=== PATIENT | female | born 1935 | race Caucasian/White ===

== ENCOUNTER → 2016-08-25 | Outpatient (CLI) | payer MEDICARE ==
--- NOTE | 2016-08-29 08:43 | MM ---
Reason for exam: screening (asymptomatic). Last mammogram was performed 1 year and 5 months ago. History: Patient is postmenopausal. Family history of breast cancer in maternal aunt at age 60 and breast cancer in maternal aunt at age 50. Reductions of both breasts, 2000. Reductions of both breasts, 195. 2 excisional biopsies of the left breast. 2 excisional biopsies of the right breast. Took hormonal contraceptives for 5 years beginning at age 26. Physical Findings: A clinical breast exam by your physician is recommended on an annual basis and results should be correlated with mammographic findings. MG Screening Mammo w CAD Bilateral CC and MLO view(s) were taken. Prior study comparison: March 30, 2015, bilateral MG 3d screening mammo w/cad. No significant changes when compared with prior studies. ASSESSMENT: Benign, BI-RAD 2 RECOMMENDATION: Routine screening mammogram of both breasts in 1 year.
== END | disposition home or self-care (01) ==
LOC: RADMAMWWP 10:02
PROVIDERS: ATTEND Family Medicine
DX: Z12.31 Encounter for screening mammogram for malignant neoplasm of breast (principal)

== ENCOUNTER → 2017-12-26 | Outpatient (CLI) | payer MEDICARE ==
--- NOTE | 2017-12-28 11:25 | MM ---
Reason for exam: screening (asymptomatic). Last mammogram was performed 1 year and 4 months ago. History: Patient is postmenopausal. Family history of breast cancer in maternal aunt at age 60 and breast cancer in maternal aunt at age 50. Reductions of both breasts, 2000. Reductions of both breasts, 1957. 2 excisional biopsies of the left breast. 2 excisional biopsies of the right breast. Took hormonal contraceptives for 5 years beginning at age 26. Physical Findings: A clinical breast exam by your physician is recommended on an annual basis and results should be correlated with mammographic findings. MG Screening Mammo w CAD Bilateral CC and MLO view(s) were taken. Prior study comparison: August 25, 2016, bilateral MG screening mammo w CAD. March 30, 2015, bilateral MG 3d screening mammo w/cad. There are scattered fibroglandular densities. Finding: There are typically benign, indeterminate calcifications in the posterior, retroareolar position of the right breast on MLO view only. New finding since August 25, 2016 and March 30, 2015. ASSESSMENT: Incomplete: need additional imaging evaluation, BI-RAD 0 RECOMMENDATION: Special view mammogram of the left breast. [facility] will attempt to contact patient to return for supplemental views.
== END ==
LOC: RADMAMWWP 13:03
PROVIDERS: ATTEND Family Medicine
DX: Z12.31 Encounter for screening mammogram for malignant neoplasm of breast (principal)
CPT/HCPCS: 77067

== ENCOUNTER → 2018-01-10 | Outpatient (CLI) | payer MEDICARE ==
--- NOTE | 2018-01-10 10:28 | MM ---
Reason for exam: additional evaluation requested from abnormal screening. Last mammogram was performed less than 1 month ago. History: Patient is postmenopausal. Family history of breast cancer in maternal aunt at age 60 and breast cancer in maternal aunt at age 50. Reductions of both breasts, 2000. Reductions of both breasts, 1957. 2 excisional biopsies of the left breast. 2 excisional biopsies of the right breast. Took hormonal contraceptives for 5 years beginning at age 26. Physical Findings: Nurse did not find any significant physical abnormalities on exam. MG 3D Work Up W/Cad RT Spot compression CC, spot compression MLO, and LM view(s) were taken of the right breast. Prior study comparison: December 26, 2017, bilateral MG screening mammo w CAD. August 25, 2016, bilateral MG screening mammo w CAD. Posterior lower outer quadrant central grouped calcifications slightly increased from 2017. These are round and punctate. 6 month follow up recommended. These results were verbally communicated with the patient and result sheet given to the patient on 01/10/18. ASSESSMENT: Probably benign, BI-RAD 3 RECOMMENDATION: Follow-up diagnostic mammogram of the right breast in 6 months.
== END | disposition home or self-care (01) ==
LOC: RADMAMWWP 09:13
PROVIDERS: ATTEND Family Medicine
DX: R92.8 Other abnormal and inconclusive findings on diagnostic imaging of breast (principal)
CPT/HCPCS: 77065; G0279; 77061

== ENCOUNTER → 2018-07-13 | Outpatient (CLI) | payer MEDICARE ==
--- NOTE | 2018-07-13 13:45 | MM ---
Reason for exam: follow-up at short interval from prior study. Last mammogram was performed 6 months ago. History: Patient is postmenopausal. Family history of breast cancer in maternal aunt at age 60 and breast cancer in maternal aunt at age 50. Reductions of both breasts, 2000. Reductions of both breasts, 1957. 2 excisional biopsies of the left breast. 2 excisional biopsies of the right breast. Took hormonal contraceptives for 5 years beginning at age 26. Physical Findings: Nurse did not find any significant physical abnormalities on exam. MG Diagnostic Mammo RT w CAD XCCL and MLO view(s) were taken of the right breast. Prior study comparison: January 10, 2018, right breast MG 3d work up w/cad RT. December 26, 2017, bilateral MG screening mammo w CAD. There are scattered fibroglandular densities. Stable benign calcifications in the right breast. There is chronic nodularity in the right breast. These results were verbally communicated with the patient and result sheet given to the patient on 07/13/18. ASSESSMENT: Benign, BI-RAD 2 RECOMMENDATION: Return to routine screening mammogram schedule for both breasts. Back on schedule.
== END | disposition home or self-care (01) ==
LOC: RADMAMWWP 12:43
PROVIDERS: ATTEND Family Medicine
DX: R92.8 Other abnormal and inconclusive findings on diagnostic imaging of breast (principal)
CPT/HCPCS: 77065

== ENCOUNTER → 2020-09-21 | Outpatient (CLI) | payer MEDICARE ==
[2020-09-21 11:41] LABS: Partial Thromboplastin Time 22.4 sec (22.0-30.0)
[2020-09-21 14:41] LABS: Appearance,Urine Clear (Clear); Bilirubin,Urine Negative (Negative); Blood,Urine Negative (Negative); Color,Urine Light Yellow; Glucose,Urine (UA) Negative (Negative); Ketones,Urine Negative (Negative); Leukocyte Esterase,Urine Negative (Negative); Nitrite,Urine Negative (Negative); Protein,Urine Negative (Negative); Specific Gravity,Urine 1.016 (1.001-1.035); Urobilinogen,Urine <2.0 mg/dL (<2.0)
[2020-09-21 14:47] LABS: HCT 37.5 % (37.2-46.3); HGB 12.2 g/dL (12.0-15.0); MCH 28.6 pg (27.0-32.0); MCHC 32.5 g/dL (32.0-37.0); MCV 87.8 fL (80.0-97.0); Mean Platelet Volume 10.6 fL (9.5-12.2); Platelet Count 197 X 10*3/uL (140-440); RBC 4.27 X 10*6/uL (4.10-5.20); RDW 12.6 % (11.5-14.5); WBC 7.11 X 10*3/uL (4.50-10.00)
[2020-09-21 16:23] LABS: African American GFR (CKD) 78.5 (60.0-200.0); Albumin 4.3 g/dL (3.80-4.90); Albumin/Globulin Ratio 2.05 (1.60-3.17); Anion Gap 9.4 mmol/L (4.00-12.00); BUN/Creat Ratio 23.75 Ratio (12.00-20.00); Calcium 9.6 mg/dL (8.7-10.3); Carbon Dioxide 24.6 mmol/L (21.6-31.8); Globulin 2.1 g/dL (1.6-3.3); Non-African American GFR(CKD) 67.7 (60.0-200.0); Potassium 4.4 mmol/L (3.5-5.5); Total Bilirubin 1.1 mg/dL (0.3-1.2); Total Protein 6.4 g/dL (6.2-8.2)
== END | disposition home or self-care (01) ==
LOC: LABWHC1 09:45
PROVIDERS: ATTEND Orthopaedic Surgery Sports Medicine
DX: Z01.818 Encounter for other preprocedural examination (principal); I45.4 Nonspecific intraventricular block; M17.12 Unilateral primary osteoarthritis, left knee; R94.31 Abnormal electrocardiogram [ECG] [EKG]
CPT/HCPCS: 36415; 80053; 81003; 85027; 85610; 85730; 87070; 93005

== ENCOUNTER 2020-10-15 05:31 | Day surgery (SDC) | payer MEDICARE ==
[2020-10-01 12:14] VITALS: BMI 32.9
[~2020-10-15 05:31] MED LIST: ACETAMINOPHEN TAB 500 MG TAB PO PRN; GABAPENTIN 300 MG CAP PO PRN; MELOXICAM 7.5 MG TAB PO PRN; ONDANSETRON 4 MG/2 ML VIAL IVP PRN; ROPIVACAINE/EPI/CLONIDINE/KET 50 ML SYRINGE MISCELLANE PRN; TRANEXAMIC ACID 1,000 MG in SODIUM CHLORIDE 0.9% 100 ML IVPB PRN
[2020-10-15] MEDS ORDERED: DEXAMETHASONE SOD PHOSPHATE 4 MG/ML 1 ML VIAL IV ONE (05:47)
[2020-10-15] MEDS ORDERED: ONDANSETRON 4 MG/2 ML VIAL IVP ONE (05:47)
[2020-10-15] MEDS ORDERED: HYDROmorphone 0.5 MG/0.5 ML SYRINGE IVP PRN ×3 (05:47→09:27)
[2020-10-15] MEDS: LACTATED RINGERS 1,000 ML IV SCH ×3 (06:29→20:11)
[2020-10-15] MEDS ORDERED: LIDOCAINE 1% (10MG/ML) FOR IV START INTRADERMA ONE (06:30)
[2020-10-15 06:33] LABS: Glucose,Whole Blood 136 mg/dL (75-99)
[2020-10-15] MEDS ORDERED: MIDAZOLAM 2 MG/2 ML VIAL IV ONE (06:42)
[2020-10-15] MEDS ORDERED: fentaNYL (PF) 50 MCG/ML 2 ML AMP ONE (07:04)
[2020-10-15] MEDS ORDERED: ROPIVACAINE 5 MG/ML 30 ML VIAL ONE (07:04)
[2020-10-15] MEDS ORDERED: MIDAZOLAM 2 MG/2 ML VIAL ONE (07:04)
[2020-10-15] MEDS ORDERED: SODIUM CHLORIDE 0.9% 100 ML BAG ONE (07:04)
[2020-10-15] MEDS ORDERED: ePHEDrine SULFATE/0.9% NACL/PF 50 MG/5 ML SYRINGE IV ONE (07:04)
[2020-10-15] MEDS ORDERED: PROPOFOL 10 MG/ML 20 ML VIAL IV ONE (07:04)
[2020-10-15] MEDS ORDERED: TRANEXAMIC ACID 1,000 MG/10 ML VIAL ONE (07:04)
[2020-10-15] MEDS ORDERED: ceFAZolin 3,000 MG in SODIUM CHLORIDE 0.9% IRRIGATIO 3,000 ML IRRIGATION ONE (07:41)
[2020-10-15] MEDS ORDERED: LACTATED RINGERS 1,000 ML IV ONE (09:03)
--- NOTE | 2020-10-15 09:21 | P.ANPRN ---
Procedure Note - Anesthesia - Nerve Block Performed Left Adductor Canal Infusion Time Out Performed: Yes (642) Date of Procedure: 10/15/20 Procedure Start Time: 06:43 Procedure Stop Time: 06:48 Location of Patient: PreOp Indication: Acute Post-Operative Pain, Requested by Surgeon Specifically requested for management of pain by DrLiliam: Arron Kerr Sedation Type: Sedate with meaningful contact maintained Preparation: Sterile Prep Position: Supine Catheter Depth at Skin (cm): 8 Catheter: Indwelling Needle Types: Pajunk Needle Gauge: 21 Ultrasound used to visualize needle placement: Yes Ultrasound used to observe medication spread: Yes Injectate: 0.5% Ropivacaine (see comment for volume) (15cc) Blood Aspirated: No Pain Paresthesia on Injection Noted: No Resistance on Injection: Normal Image Stored and Saved: Yes Events: Uneventful and Well Tolerated Left iPack Single Time Out Performed: Yes (642) Date of Procedure: 10/15/20 Procedure Start Time: 06:49 Procedure Stop Time: 06:54 Location of Patient: PreOp Indication: Acute Post-Operative Pain, Requested by Surgeon Specifically requested for management of pain by Dr.: Arron Kerr Sedation Type: Sedate with meaningful contact maintained Preparation: Sterile Prep Position: Supine Catheter: None Needle Types: Pajunk Needle Gauge: 21 Ultrasound used to visualize needle placement: Yes Ultrasound used to observe medication spread: Yes Injectate: 0.5% Ropivacaine (see comment for volume) (15cc) Blood Aspirated: No Pain Paresthesia on Injection Noted: No Resistance on Injection: Normal Image Stored and Saved: Yes Events: Uneventful and Well Tolerated
[2020-10-15] MEDS ORDERED: ONDANSETRON 4 MG/2 ML VIAL IVP PRN (09:27)
[2020-10-15] MEDS ORDERED: bisacodyL 10 MG SUPP RECTAL PRN (09:27)
[2020-10-15] MEDS ORDERED: HYDROmorphone 0.2 MG/1 ML SYRINGE IVP PRN (09:27)
[2020-10-15] MEDS ORDERED: MAGNESIUM HYDROXIDE 2,400 MG/10 ML CUP PO PRN (09:27)
[2020-10-15] MEDS ORDERED: NALOXONE 0.4 MG/ML 1 ML VIAL IV PRN (09:27)
[2020-10-15] MEDS ORDERED: diazePAM 5 MG TAB PO PRN (09:27)
[2020-10-15] MEDS ORDERED: HYDROcodone/APAP 5-325MG 1 EACH TAB PO PRN (09:27)
[2020-10-15] MEDS ORDERED: traMADol 50 MG TAB PO PRN (09:27)
[2020-10-15] MEDS ORDERED: ACETAMINOPHEN TAB 325 MG TAB PO PRN (09:27)
[2020-10-15] MEDS ORDERED: TEMAZEPAM 15 MG CAP PO PRN (09:27)
[2020-10-15] MEDS ORDERED: NA PHOS,M-B/NA PHOS,DI-BA 133 ML ENEMA RECTAL PRN (09:27)
[2020-10-15] MEDS ORDERED: ROPIVACAINE 0.2%-NS ON-Q PUMP 1,090 MG, EMPTY PAIN BALL 1 EACH MISCELLANE PRN (09:44)
--- NOTE | 2020-10-15 09:52 | XR ---
EXAMINATION TYPE: XR knee limited LT DATE OF EXAM: 10/15/2020 CLINICAL HISTORY: Left knee pain and arthritis status post total knee replacement. TECHNIQUE: Portable AP and crosstable lateral views of the left knee are obtained immediately postop eratively. COMPARISON: None FINDINGS: Metallic hardware from total left knee arthroplasty is seen and appears satisfactory in al ignment and position. There is evidence of recent surgery with diffuse subcutaneous gas and soft tis ronaldo swelling noted. IMPRESSION: METALLIC HARDWARE FROM TOTAL LEFT KNEE ARTHROPLASTY IS SATISFACTORY IN ALIGNMENT.
--- NOTE | 2020-10-15 10:37 | OP ---
OPERATIVE REPORT DATE OF PROCEDURE: 10/15/2020. SURGEON: Arron Kerr MD. PROPERTY DEVELOPER: Ron LUGO. PREOP DIAGNOSIS: Left knee osteoarthrosis. POSTOPERATIVE DIAGNOSIS: Left knee osteoarthrosis. OPERATION: Left total knee arthroplasty. ANESTHESIA: Spinal with sedation. ESTIMATED BLOOD LOSS: 100 mL. TOURNIQUET: Time was 60 minutes at 250 mmHg. COMPLICATIONS: None apparent. DRAINS: None. DISPOSITION: Postanesthesia care unit. INDICATIONS: Alicia is an 85-year-old female with longstanding history of left knee pain. History and physical examination are consistent with advanced left knee osteoarthrosis. She has been through significant nonoperative management up to this point. Further treatment options were discussed and she decided to go for the left total knee arthroplasty. Risks of procedure were discussed in detail. These risks included, but were not limited to risk of infection, nerve damage, bleeding, pain, and a small risk of deep vein thrombosis which could lead to fatal pulmonary emboli. There is also risk of loosening of the implant which could require revision operation. The patient understands these risks. All of her questions were answered to her satisfaction. Appropriate informed consent was obtained. DESCRIPTION OF THE PROCEDURE: The patient identified in preoperative holding area. Surgical site was marked by both the patient and myself. She was given 2 grams of Ancef IV for prophylactic purposes. She was then transferred to the operative suite. She was placed supine on the operative table. Spinal anesthetic was then administered, dosed per the anesthesia without apparent complication. Examination under anesthesia was then performed. The patient was 2 - 3 degrees shy of full extension. She had 95 degrees of flexion. Medial collateral ligament, lateral collateral ligament and posterior cruciate ligaments were stable. Tourniquet was then placed high on the left upper thigh well-padded in preparation for surgery. The patient's left lower extremity was then prepped and draped in the usual sterile fashion. Standard surgical pause undertaken to ensure that we were operating on the correct site and that appropriate preoperative antibiotics were given. All staff were in agreement we proceeded. The outlines of the patella were marked surgical pen. A planned 12 cm vertical incision centered over the patella was marked with surgical pen. The limb was then exsanguinated with an Esmarch dressing. The knee was then flexed and tourniquet inflated to 250 mmHg. The total tourniquet time for the procedure was 60 minutes. Incision was then made with a 10 blade scalpel. Dissection carried down sharply overlying fascia. Great care was taken to minimize the skin flaps. The knee was then exposed using a standard medial parapatellar approach. A small cuff of quadriceps tendon was then left for suturing. She was in a bit of varus preoperatively. A standard medial release was then made. Superficial medial collateral ligament dissected off the bone around the posterior aspect of the proximal tibia. The medial meniscus was then excised as well. The lateral meniscus was also released anteriorly. The leg was then externally rotated. The patella was everted. The knee was flexed the retractors then placed to protect the collateral ligaments. I then proceeded to remove the infrapatellar fat pad. This was excised sharply tangentially with fibers of the patellar tendon. I then proceeded to remove the peripheral osteophytes. This was done with a rongeur. I then proceeded with the distal femoral resection. She did have near full extension. The planned 9 mm resection done. The femoral canal was then entered in midline of the femur approximately 10 mm anterior to the origin of posterior cruciate ligament. The mario was then advanced down the center of the femur and placed intramedullary. Based on the preoperative radiographs, the angle between the anatomic and mechanical axis of the femur was approximately 4-5 degrees with valgus angle, the distal femoral cutting guide was then set at 4 degrees for the left knee. The distal femoral cutting guide was then advanced over the intramedullary mario. This was seated firmly against the femur. I then as mentioned planned to take 9 mm off the distal femur. The cutting blocks then secured onto the femur with pins. The jig was removed. The distal femoral cut was made through the slot of the block. The pins were then removed. The distal femoral cutting block was removed. The accuracy of the distal femoral cuts was checked with 2 flat bars. I then proceed with his femoral sizing. Posterior referencing sizing guide was held firmly against the resected distal surface of the femur. The posterior condyles were resting on the posterior plane of the guide. The sizing guide was then placed on the anterior femur. The size was measured to a 8. I then assessed for femoral rotation. Plan was for 3 degrees of external rotation. Three degrees of external rotation was placed onto the jig. These holes were then marked. I then confirmed the rotation by 3 separate methods. This was done using epicondylar axis as well as [place] line and posterior referencing. It was deemed that the external rotation was proper. I went forward placing the femoral cutting block. This was placed over the previously placed pin holes. The Andres wing was then placed on the anterior slots to ensure that we would not notch the anterior femur with the anterior femoral cut. I then proceeded with the anterior femoral cut. This was flush with the anterior cortex of the femur. Posterior cuts were then made followed by the anterior chamfer cut, then the posterior chamfer cut. The cutting block was then removed. Throughout resection, the collateral ligaments were protected with retractors. I then placed a trial size 8 femur. It fit very nice medial-lateral and fit flush and was on the distal end of the femur. The drill holes were then made. I then proceeded with the tibial cut. I planned for a cruciate-retaining knee. The guide was placed and set for varus valgus and for slope. The height was set for approximate 2 mm resection from the medial tibial plateau which was the lower side. I was happy with the alignment and mario resection. The cutting block was then pinned to the proximal tibia. The alignment mario was removed. The proximal tibia was resected with a reciprocating saw. Again, this was done with retractors protecting the collateral ligaments as well as the posterior cruciate ligament. I then proceeded to evaluate the flexion and extension gaps. A 10 mm block was then placed. The flexion-extension gap was equal. I then proceeded with resection of posterior osteophytes. She had very minimal posterior osteophytes. This was done with a curved osteotome. This resected the posterior osteophytes and posterior capsule stripping done off the posterior aspect of the femur. The osteophytes were then removed. I then proceed to resection of the patella. The thickness of the patella was measured using the caliper. The thickness was 22 mm. The thickness of the anticipated patellar dome was taken into account. Resection was then performed and confirmed to be equal in 4 quadrants using a caliper. Approximately 14 mm of bone remained after resection. A 29 x 8 standard patellar trial was then placed. The holes were drilled. The trial was then placed. I then proceed to size the tibial plate. A size D tibial plate fit very nicely. I then placed the trial tibial tray and patellar button. A 10 mm trial tibial insert was also placed. The components fit very nicely. She had full extension and flexion. The extension and flexion gaps were equal and stable to varus and valgus stress. The patella tracked appropriately. The tibial tray rotation was marked with a Bovie. This was externally rotated properly. I then proceeded with the tibial preparation. I 1st drilled the femoral holes removed femoral component. The tibial tray was then set for proper external rotation as well as mediolateral placement onto the tibia. It was then pinned into place. I then proceeded with punching the keel. I then decided to proceed with cementing of all of our components. The knee was thoroughly irrigated with sterile saline solution via pulse lavage. The lateral geniculate artery was identified and cauterized. All blood was removed from the bone of the tibia femur and patella with pulse lavage. I then proceed with cementing. Two packs of antibiotic bone cement prepared on the back table by the manager technical support. I then proceed with cementing the tibia first. The cement was impacted in the keel as well as deeply seated to the bone. A second coat of cement was then placed. The tibia was then impacted into place. Excess cement was removed with [place]'s and jokers. I then proceeded with cementing the femoral component. The femoral components also cemented using standard technique. Excess cement was removed. A 10 mm trial insert was then placed into the knee. It was brought into full extension with the cement constant axial load placed until the cement had hardened. The patellar component then cemented. This was held firmly with a compressive device until the cement had dried. When the cement dried, the knee was taken out of extension. All excess cement was removed from around the prosthesis. I then trialed the knee with a 10 mm insert. The flexion and extension gaps were appropriate. I then trialed with a 12 mm insert. Flexion and extension gaps felt much better. The knee was stable with a 12 mm insert. It came into full extension. I decided to go forward with the 12 mm medial congruent cross-linked cruciate-retaining tibial insert. Polyethylene was then placed on the tibial tray and locked into place. The knee was again then reduced. The knee was again further irrigated with sterile saline solution with antibiotic added. The tourniquet was then deflated. Total tourniquet time for the procedure was 60 minutes at 250 mmHg. Final components were a Madhuri Persona size 8 cruciate Tivanium cruciate retaining. Femoral component, a size D tibial tray, a 12 mm medial congruent cruciate-retaining polyethylene insert, and a 29 x 8 mm patella. I then proceeded with closure. Again, the knee was thoroughly irrigated. The quadriceps tendon and medial retinaculum were reapproximated with #2 Ethibond suture. The extensor mechanism was then closed with a running #2 Quill suture. Subcutaneous tissues were closed with 2-0 Vicryl interrupted suture. The skin was closed with a running 3-0 Quill suture. Dermabond was applied to the incision. Sterile compressive dressings were applied. All sponge and needle counts were deemed correct prior to closure. The patient tolerated the procedure without apparent complication. She was transferred to the recovery room in stable condition. MMODL / IJN: [id number] /
[2020-10-15] MEDS: HYDROcodone/APAP 10-325MG 1 EACH TAB PO PRN ×3 (11:28→23:33)
[2020-10-15 11:51] LABS: Glucose,Whole Blood 138 mg/dL (75-99)
[2020-10-15 17:18] LABS: Glucose,Whole Blood 157 mg/dL (75-99)
[2020-10-15] MEDS: metFORMIN 500 MG TAB PO SCH (17:25)
[2020-10-15] MEDS ORDERED: ASPIRIN 81 MG PO SCH ×2 (17:30→21:00)
[2020-10-15] MEDS ORDERED: LOSARTAN 50 MG TAB PO SCH (17:30)
[2020-10-15] MEDS ORDERED: ATORVASTATIN 10 MG TAB PO SCH (17:30)
[2020-10-15 20:14] LABS: Glucose,Whole Blood 148 mg/dL (75-99)
[2020-10-15] MEDS ORDERED: SENNOSIDES-DOCUSATE SODIUM 1 EACH TAB PO SCH (21:00)
[2020-10-15] MEDS ORDERED: PATIENT'S OWN (Mirabegron [Myrbetriq] 50 MG Tab.Er.24h) PO SCH (21:00)
[2020-10-15] MEDS ORDERED: NON FORMULARY DRUG (Multivit With Calcium,Iron,Min [Women's Multivitamin] 1 EACH Tablet) PO SCH (21:00)
[2020-10-16 05:09] VITALS: BP 148/62; PULSE 82; RESP 17; TEMP 98
[2020-10-16] MEDS: HYDROcodone/APAP 10-325MG 1 EACH TAB PO PRN ×2 (05:25→11:25)
[2020-10-16] MEDS ORDERED: LEVOTHYROXINE 112 MCG TAB PO SCH (06:30)
[2020-10-16 06:34] LABS: Basophils % (A) 0 %; Eosinophils # (A) 0.1 k/uL (0-0.7); Eosinophils % (A) 1 %; HCT 32.9 % (34.0-46.0); HGB 11.2 gm/dL (11.4-16.0); Lymphocytes # (A) 1.9 k/uL (1.0-4.8); Lymphocytes % (A) 19 %; MCH 29.6 pg (25.0-35.0); MCHC 34.1 g/dL (31.0-37.0); Mean Platelet Volume 7.5; Monocytes # (A) 0.7 k/uL (0-1.0); Monocytes % (A) 8 %; Neutrophils # (A) 6.7 k/uL (1.3-7.7); Neutrophils % (A) 70 %; Platelet Count 175 k/uL (150-450); RBC 3.78 m/uL (3.80-5.40); RDW 12.9 % (11.5-15.5); WBC 9.6 k/uL (3.8-10.6)
[2020-10-16 07:19] LABS: Glucose,Whole Blood 130 mg/dL (75-99)
[2020-10-16] MEDS: LACTATED RINGERS 1,000 ML IV SCH ×2 (07:51)
[2020-10-16] MEDS: metFORMIN 500 MG TAB PO SCH (08:27)
[2020-10-16] MEDS ORDERED: CALCIUM CARBONATE 500 MG CHEWABLE PO SCH (09:00)
[2020-10-16] MEDS ORDERED: NON FORMULARY DRUG (Omega-3 Fatty Acids/Fish Oil [Fish Oil 1,000 Mg Softgel] 1 EACH Capsul PO SCH (09:00)
[2020-10-16] MEDS ORDERED: CHOLECALCIFEROL 25 MCG (1000 IU) TABLET PO SCH (09:00)
[2020-10-16] MEDS ORDERED: [UNRECOGNIZED DRUG - OTHER] PO SCH (09:00)
[2020-10-16] MEDS ORDERED: IBUPROFEN 400 MG TAB PO PRN (09:00)
[2020-10-16] MEDS ORDERED: NON FORMULARY DRUG (Vitamin B Complex [Vitamin B Complex] 1 EACH Capsule) PO SCH (09:00)
--- NOTE | 2020-10-16 10:08 | P.DS ---
Providers Expected date of discharge: 10/16/20 Attending physician: Arron Kerr Consults: 10/15/20 09:27 Consult Physician Routine Consulting Provider: Shari Gray Consult Reason/Comments: post op medical management Do you want consulting provider notified?: Yes Primary care physician: Haleigh Kelley - Discharge Diagnosis(es) (1) Osteoarthritis of left knee Patient was admitted to the OR on 10/15/20 to undergo a left total knee arthroplasty. She had failed conservative measures as an outpatient and desired to proceed with elective surgery after given informed consent. She underwent the above procedure which she tolerated well without complication. Postoperative hospital course has remained without complication. On day of discharge she is afebrile, vital signs stable, labs within acceptable ranges, tolerating by mouth meds and diet, voiding without difficulty, positive flatus, denies abdominal pain or calf pain, pain is controlled on oral pain medication and has no new complaints. Wound is benign, neurovascular status is intact, calf is soft and nontender, abdomen soft and nontender. Review of systems is negative for numbness, tingling, fever, chills, chest pain, shortness of breath, nausea, vomiting, dizziness, headaches, slurred speech or other. Current Visit: Yes Status: Acute Procedures: Left TKA Patient Condition at Discharge: Good Plan - Discharge Summary Discharge Rx Participant: No New Discharge Prescriptions: New Aspirin [Adult Low Dose Aspirin EC] 81 mg PO BID #60 tablet. Docusate [Colace] 100 mg PO BID #60 capsule HYDROcodone/APAP 7.5-325MG [[place] 7.5-325] 1 - 2 each PO Q6HR PRN #42 tab PRN Reason: Pain No Action Cranberry Conc/C/Bacill Coag [Cranberry Tablet] 1 each PO DAILY Calcium Carbonate [Tums] 1,000 mg PO DAILY Aspirin EC [Ecotrin] 81 mg PO W/SUPPER metFORMIN HCL [Glucophage] 500 mg PO BID-W/MEALS Simvastatin [Zocor] 20 mg PO W/SUPPER Levothyroxine Sodium [Levoxyl] 112 mcg PO DAILY Mirabegron [Myrbetriq] 50 mg PO HS Cholecalciferol [Vitamin D3 (25 Mcg = 1000 Iu)] 25 mcg PO DAILY Vitamin B Complex 1 each PO DAILY [place]-3 Fatty Acids/Fish Oil [Fish Oil 1,000 mg Softgel] 1 each PO DAILY Multivit with Calcium,Iron,Min [Women's Multivitamin] 1 each PO BID Losartan Potassium 100 mg PO W/SUPPER Ibuprofen 400 mg PO DIRECTED PRN PRN Reason: Pain Discharge Medication List Aspirin EC [Ecotrin] 81 mg PO W/SUPPER 11/04/13 [History] Calcium Carbonate [Tums] 1,000 mg PO DAILY 11/04/13 [History] Cranberry Conc/C/Bacill Coag [Cranberry Tablet] 1 each PO DAILY 11/04/13 [History] Levothyroxine Sodium [Levoxyl] 112 mcg PO DAILY 11/04/13 [History] Simvastatin [Zocor] 20 mg PO W/SUPPER 11/04/13 [History] metFORMIN HCL [Glucophage] 500 mg PO BID-W/MEALS 11/04/13 [History] Cholecalciferol [Vitamin D3 (25 Mcg = 1000 Iu)] 25 mcg PO DAILY 10/01/20 [History] Ibuprofen 400 mg PO DIRECTED PRN 10/01/20 [History] Losartan Potassium 100 mg PO W/SUPPER 10/01/20 [History] Mirabegron [Myrbetriq] 50 mg PO HS 10/01/20 [History] Multivit with Calcium,Iron,Min [Women's Multivitamin] 1 each PO BID 10/01/20 [History] [place]-3 Fatty Acids/Fish Oil [Fish Oil 1,000 mg Softgel] 1 each PO DAILY 10/01/20 [History] Vitamin B Complex 1 each PO DAILY 10/01/20 [History] Aspirin [Adult Low Dose Aspirin EC] 81 mg PO BID #60 tablet.dr 10/16/20 [Rx] Docusate [Colace] 100 mg PO BID #60 capsule 10/16/20 [Rx] HYDROcodone/APAP 7.5-325MG [[place] 7.5-325] 1 - 2 each PO Q6HR PRN #42 tab 10/16/20 [Rx] Follow up Appointment(s)/Referral(s): [facility], [NON-STAFF] - ([facility] will call you to arrange your first home care appointment. Please call them if you have any questions about home care and home physical therapy. ) Arron Kerr MD [STAFF PHYSICIAN] - 10 Days Activity/Diet/Wound Care/Special Instructions: Keep wound clean and dry Take meds as directed May shower after three days if no bleeding F/U with Dr. Kerr in office in 10 days Discharge Disposition: HOME WITH HOME HEALTH SERVICES
--- NOTE | 2020-10-16 10:16 | P.CONS ---
History of Present Illness - Reason for Consult Consult date: 10/16/20 Medical management Requesting physician: Arron Kerr - History of Present Illness This is an 85-year-old female patient of Dr. Kelley. Patient presented for an elective total left knee replacement with Dr. Kerr on 10/15/2020. Patient has a past medical history of diabetes mellitus, hypertension, osteoporosis, hypothyroid disease and osteoarthritis. Patient is currently resting comfortably in chair patient is postop day 1. Patient has been afebrile. Patient has been up with physical therapy. Patient denies any chest pain or shortness breath. Patient denies nausea vomiting or diarrhea. Patient denies any urinary burning or frequency. Patient anticipated to be discharged home today per orthopedic services. Review of Systems please refer to HPI otherwise unremarkable Past Medical History Past Medical History: Diabetes Mellitus, Hypertension, Osteoarthritis (OA), Thyroid Disorder Additional Past Medical History / Comment(s): VARICOSE VEINS., IBS/D., HX COLON POLYPS., INCONTINENT OF URINE. , PAIN KNEES & HIPS. 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) Past Anesthesia/Blood Transfusion Reactions: No Reported Reaction, Motion Sickness Past Psychological History: No Psychological Hx Reported Smoking Status: Never smoker Past Alcohol Use History: None Reported Past Drug Use History: None Reported - Past Family History Mother Family Medical History: Cancer, Diabetes Mellitus Additional Family Medical History / Comment(s): pancreatic ca Father Additional Family Medical History / Comment(s): heart problems- had a bypass surgery Medications and Allergies Home Medications Medication Instructions Recorded Confirmed Type Aspirin EC [Ecotrin] 81 mg PO W/SUPPER 11/04/13 10/15/20 History Calcium Carbonate [Tums] 1,000 mg PO DAILY 11/04/13 10/15/20 History Cranberry Conc/C/Bacill Coag 1 each PO DAILY 11/04/13 10/15/20 History [Cranberry Tablet] Levothyroxine Sodium [Levoxyl] 112 mcg PO DAILY 11/04/13 10/15/20 History Simvastatin [Zocor] 20 mg PO W/SUPPER 11/04/13 10/15/20 History metFORMIN HCL [Glucophage] 500 mg PO BID-W/MEALS 11/04/13 10/15/20 History Cholecalciferol [Vitamin D3 (25 25 mcg PO DAILY 10/01/20 10/15/20 History Mcg = 1000 Iu)] Ibuprofen 400 mg PO DIRECTED PRN 10/01/20 10/15/20 History Losartan Potassium 100 mg PO W/SUPPER 10/01/20 10/15/20 History Mirabegron [Myrbetriq] 50 mg PO HS 10/01/20 10/15/20 History Multivit with Calcium,Iron,Min 1 each PO BID 10/01/20 10/15/20 History [Women's Multivitamin] [place]-3 Fatty Acids/Fish Oil [Fish 1 each PO DAILY 10/01/20 10/15/20 History Oil 1,000 mg Softgel] Vitamin B Complex 1 each PO DAILY 10/01/20 10/15/20 History Aspirin [Adult Low Dose Aspirin EC] 81 mg PO BID #60 tablet. 10/16/20 Rx Docusate [Colace] 100 mg PO BID #60 capsule 10/16/20 Rx HYDROcodone/APAP 7.5-325MG [[place] 1 - 2 each PO Q6HR PRN #42 tab 10/16/20 Rx 7.5-325] Allergies Allergy/AdvReac Type Severity Reaction Status Date / Time codeine Allergy Unknown Nausea & Verified 10/01/20 12:22 Vomiting Penicillins Allergy Rash/Hives Verified 10/01/20 11:20 sulfamethoxazole Allergy Severe Verified 10/01/20 11:20 [From Bactrim] Headache & Vomiting Tetanus Vaccines and Toxoid Allergy Rash/Hives Verified 10/01/20 11:20 [Tetanus Vaccines & Toxoid] trimethoprim [From Bactrim] Allergy Severe Verified 10/01/20 11:20 Headache & Vomiting DENTAL IMPLANTS Allergy Unknown STATES Uncoded 10/01/20 12:14 DENTAL IMPLANTS REMOVED. Physical Exam Vitals: Vital Signs Temp Pulse Pulse Resp BP Pulse Ox 10/16/20 05:07 98.0 F 82 17 148/62 95 10/15/20 19:32 97.7 F 75 18 129/62 94 L 10/15/20 11:27 96.2 F L 69 18 136/74 96 10/15/20 10:45 96.1 F L 65 17 153/66 95 10/15/20 10:15 66 16 138/65 94 L Intake and Output 10/15/20 10/16/20 10/16/20 22:59 06:59 14:59 Intake Total 600 1700 Balance 600 1700 Intake: Intake, IV Titration 600 1200 Amount Lactated Ringers 1,000 ml 600 1200 @ 100 mls/hr IV .Q10H MAGO Rx#:[id number] Oral 500 Other: Voiding Method Toilet # Voids 3 Head normocephalic Neck supple Lungs clear to auscultation bilaterally no wheezing or crackles Heart regular rate and rhythm S1-S2, no rub or gallop Abdomen is soft nontender nondistended positive bowel sounds no hepatosplenomegaly Extremities no edema. Left knee dressing is clean dry and intact Neuro alert and orientated to 3 Results CBC & Chem 7: 10/16/20 05:47 Labs: Abnormal Lab Results - Last 24 Hours (Table) 10/15/20 10/15/20 10/15/20 Range/Units 11:50 17:16 20:12 RBC (3.80-5.40) m/uL Hgb (11.4-16.0) gm/dL Hct (34.0-46.0) % POC Glucose (mg/dL) 138 H 157 H 148 H (75-99) mg/dL 10/16/20 10/16/20 Range/Units 05:47 07:13 RBC 3.78 L (3.80-5.40) m/uL Hgb 11.2 L (11.4-16.0) gm/dL Hct 32.9 L (34.0-46.0) % POC Glucose (mg/dL) 130 H (75-99) mg/dL Assessment and Plan Assessment: 1. Status post total left knee replacement with Dr. Kerr on 10/15/2020 2. History of essential hypertension 3. Diabetes mellitus type 2. 4. Hypothyroidism Thank you for this consultation we'll continue to follow patient closely throughout stay
[2020-10-16 10:42] LABS: ALT 16 U/L (4-34); AST 26 U/L (14-36); African American GFR (CKD) 82 (>60 ml/min/1.73 sqM); Albumin/Globulin Ratio 1.3; Alkaline Phosphatase 56 U/L (38-126); Anion Gap 5 mmol/L; Blood Urea Nitrogen 19 mg/dL (7-17); Calcium 8.4 mg/dL (8.4-10.2); Carbon Dioxide 25 mmol/L (22-30); Chloride 105 mmol/L (98-107); Globulin 2.3 g/dL; Glucose 115 mg/dL (74-99); Non-African American GFR(CKD) 71 (>60 ml/min/1.73 sqM); Potassium 4.3 mmol/L (3.5-5.1); Sodium 135 mmol/L (137-145); Total Bilirubin 0.5 mg/dL (0.2-1.3); Total Protein 5.3 g/dL (6.3-8.2)
[2020-10-16 11:18] LABS: Glucose,Whole Blood 193 mg/dL (75-99)
[2020-10-16] MEDS ORDERED: MULTIVITAMINS, THERA 1 EACH TAB PO SCH (12:00)
--- NOTE | 2020-10-16 12:48 | P.PN ---
Progress Note - Text 10/16/2020 07:21 The patient is status post left adductor canal catheter placement. The catheter was placed for postoperative pain control, status post total left arthroplasty. Ropivacaine 0.2% is infusing at 8 mLs per hour. The patient has no complaints of left lower extremity numbness or weakness. Patient's VAS score is 5-6 -10. Assessment: The patient has some increased pain on the anterior portion of her knee. The patient has received some oral pain meds for breakthrough. Plan: continue infusion and adjust it as needed.
== END 2020-10-16 13:30 | disposition home health service (06) ==
LOC: OR 05:31 → 5NMEDONC 09:11 → OR 10-16 13:30
PROVIDERS: ATTEND Orthopaedic Surgery Sports Medicine
DX: M17.12 Unilateral primary osteoarthritis, left knee (principal); Z20.822 Contact with and (suspected) exposure to COVID-19; I10 Essential (primary) hypertension; E03.9 Hypothyroidism, unspecified; E11.9 Type 2 diabetes mellitus without complications; K58.9 Irritable bowel syndrome, unspecified; Z79.899 Other long term (current) drug therapy; Z79.82 Long term (current) use of aspirin; Z88.5 Allergy status to narcotic agent; Z88.0 Allergy status to penicillin; Z88.2 Allergy status to sulfonamides; Z88.7 Allergy status to serum and vaccine
CPT/HCPCS: 97161; 64999; 64448; 76942; 80053; 85025; 88300; 87635; 73560; 27447; C1776; C1713; J2250; J1100; J0690 ×2; J2405; J3010; J2795 ×2; J2704

== ENCOUNTER → 2021-03-02 | Outpatient (CLI) | payer MEDICARE ==
--- NOTE | 2021-03-02 11:39 | MM ---
Reason for exam: additional evaluation requested from prior study. Last mammogram was performed 1 year and 9 months ago. History: Patient is postmenopausal. Family history of breast cancer in maternal aunt at age 60 and breast cancer in maternal aunt at age 50. Reductions of both breasts, 2000. Reductions of both breasts, 1957. 2 excisional biopsies of the left breast. 2 excisional biopsies of the right breast. Took hormonal contraceptives for 5 years beginning at age 26. Physical Findings: Nurse Summary: 0.5cm nodule in the right breast at 9 o'clock (nurse ms). MG 3D Diag Mammo W/Cad SERGIO Bilateral CC and MLO view(s) were taken. Prior study comparison: May 20, 2019, bilateral MG screening mammo w CAD. July 13, 2018, right breast MG diagnostic mammo RT w CAD. January 10, 2018, right breast MG 3d work up w/cad RT. There are scattered fibroglandular densities. Finding #1: Stable architectural distortion in the lower quadrant of the left breast consistent with known reduction changes. Finding #2: There are typically benign round, linear calcifications in both breasts. There is no discrete abnormality. These results were verbally communicated with the patient and result sheet given to the patient on 03/02/21. ASSESSMENT: Incomplete: need additional imaging evaluation, BI-RAD 0 RECOMMENDATION: Ultrasound of the right breast. (palpable by nurse)
--- NOTE | 2021-03-02 11:40 | USB ---
Reason for exam: additional evaluation requested from abnormal screening. History: Patient is postmenopausal. Family history of breast cancer in maternal aunt at age 60 and breast cancer in maternal aunt at age 50. Reductions of both breasts, 2000. Reductions of both breasts, 195. 2 excisional biopsies of the left breast. 2 excisional biopsies of the right breast. Took hormonal contraceptives for 5 years beginning at age 26. US Breast Limited RT Right limited breast ultrasound including focal area of concern, retroareolar and axilla demonstrates a 5 x 3 x 3mm oval, cystic lesion at 12 o'clock BB. Scanned 11-1 o'clock. These results were verbally communicated with the patient and result sheet given to the patient on 03/02/21. ASSESSMENT: Benign, BI-RAD 2 RECOMMENDATION: Routine screening mammogram of both breasts in 1 year.
== END | disposition home or self-care (01) ==
LOC: RADMAMWWP 10:06
PROVIDERS: ATTEND Family Medicine
DX: N60.01 Solitary cyst of right breast (principal); R92.1 Mammographic calcification found on diagnostic imaging of breast; Z80.3 Family history of malignant neoplasm of breast; Z78.0 Asymptomatic menopausal state
CPT/HCPCS: 77066; 76642; G0279; 77062

== ENCOUNTER → 2022-03-03 | Outpatient (CLI) | payer MEDICARE ==
--- NOTE | 2022-03-04 10:13 | MM ---
Reason for Exam: Screening (asymptomatic). Last screening mammogram was performed 12 month(s) ago. Patient History: Menarche at age 12. First Full-Term at age 26. Hysterectomy at age 39. Postmenopausal. Hormonal Contraceptives for 5 years from age 26 until age 31. 1956, Bilateral Reduction. 2000, Bilateral Reduction. Excisional Biopsy on the Right side. Excisional Biopsy on the Right side. Excisional Biopsy on the Left side. Excisional Biopsy on the Left side. Maternal aunt had breast cancer, age 60. Maternal aunt had breast cancer, age 50. Risk Values: Emilia 5 year model risk: 2.3%. NCI Lifetime model risk: 2.3%. Prior Study Comparison: 07/13/2018 Right Diagnostic Mammogram, [facility]. 05/20/2019 Bilateral Screening Mammogram, [facility]. 03/02/2021 Bilateral Diagnostic Mammogram, [facility]. Tissue Density: There are scattered fibroglandular densities. Findings: Analyzed By CAD. There is no suspicious group of microcalcifications or new suspicious mass in either breast. Benign-appearing calcifications bilaterally. Overall Assessment: Benign, BI-RAD 2 Management: Screening Mammogram of both breasts in 1 year. A clinical breast exam by your physician is recommended on an annual basis and results should be correlated with mammographic findings. [facility] will attempt to contact patient to return for supplemental views and ultrasound if indicated. Electronically signed and approved by: Mal Farmer DO
== END | disposition home or self-care (01) ==
LOC: RADMAMWWP 15:49
PROVIDERS: ATTEND Family Medicine
DX: Z12.31 Encounter for screening mammogram for malignant neoplasm of breast (principal); Z78.0 Asymptomatic menopausal state; Z80.3 Family history of malignant neoplasm of breast
CPT/HCPCS: 77063; 77067

== ENCOUNTER → 2022-05-25 | Outpatient (CLI) | payer MEDICARE ==
[2022-05-25 11:44] LABS: Partial Thromboplastin Time 22.7 sec (22.0-30.0); Prothrombin Time 10.7 sec (9.0-12.0)
[2022-05-25 15:37] LABS: HCT 41.3 % (37.2-46.3); HGB 13.3 g/dL (12.0-15.0); MCH 29.2 pg (27.0-32.0); MCHC 32.2 g/dL (32.0-37.0); MCV 90.6 fL (80.0-97.0); NRBC Per 100 WBC 0 /100 WBCS (0.0-0.0); Platelet Count 194 X 10*3/uL (140-440); RBC 4.56 X 10*6/uL (4.10-5.20); RDW 12.3 % (11.5-14.5)
[2022-05-25 15:55] LABS: Appearance,Urine Clear (Clear); Bilirubin,Urine Negative (Negative); Blood,Urine Negative (Negative); Color,Urine Yellow (Yellow); Ketones,Urine Negative (Negative); Nitrite,Urine Negative (Negative); PH, Urine 6.5 (5.0-8.0); Specific Gravity,Urine 1.018 (1.001-1.030); Urobilinogen,Urine 0.2 (0.2,1.0)
[2022-05-25 16:02] LABS: Bacteria,Urine None Seen /HPF (None Seen)
[2022-05-26 02:58] LABS: African American GFR (CKD) 77.9 (60.0-200.0); Albumin 4.2 g/dL (3.8-4.9); Anion Gap 7.5 mmol/L (10.00-18.00); Calcium 9.9 mg/dL (8.7-10.3); Carbon Dioxide 27.5 mmol/L (20.0-27.5); Globulin 2.1 g/dL (1.6-3.3); Non-African American GFR(CKD) 67.2 (60.0-200.0); Potassium 5.4 mmol/L (3.5-5.5); Total Bilirubin 0.7 mg/dL (0.30-1.20); Total Protein 6.3 g/dL (6.2-8.2)
== END | disposition home or self-care (01) ==
LOC: LABWHC1 09:39
PROVIDERS: ATTEND Orthopaedic Surgery Sports Medicine
DX: Z01.818 Encounter for other preprocedural examination (principal); I44.4 Left anterior fascicular block; R94.31 Abnormal electrocardiogram [ECG] [EKG]
CPT/HCPCS: 36415; 80053; 81001; 85027; 85610; 85730; 87070; 93005

== ENCOUNTER → 2023-04-13 | Outpatient (CLI) | payer MEDICARE ==
--- NOTE | 2023-04-17 19:20 | MM ---
Reason for Exam: Screening (asymptomatic). Last mammogram was performed 1 year(s) and 2 month(s) ago. Patient History: Menarche at age 12. First Full-Term at age 26. Hysterectomy at age 39. Postmenopausal. Hormonal Contraceptives for 5 years from age 26 until age 31. 1956, Bilateral Reduction. 2000, Bilateral Reduction. Excisional Biopsy on the Right side. Excisional Biopsy on the Right side. Excisional Biopsy on the Left side. Excisional Biopsy on the Left side. Maternal aunt had breast cancer, age 60. Maternal aunt had breast cancer, age 50. Prior Study Comparison: 05/20/2019 Bilateral Screening Mammogram, [facility]. 03/02/2021 Bilateral Diagnostic Mammogram, [facility]. 03/03/2022 Bilateral MG 3D screening mammo w/cad, [facility]. Tissue Density: There are scattered fibroglandular densities. Findings: Analyzed By CAD. Redemonstrated benign round calcifications on both sides. There is no suspicious group of microcalcifications or new suspicious mass in either breast. Overall Assessment: Benign, BI-RAD 2 Management: Screening Mammogram of both breasts in 1 year. . Patient should continue monthly self-breast exams. A clinical breast exam by your physician is recommended on an annual basis. This exam should not preclude additional follow-up of suspicious palpable abnormalities. Electronically signed and approved by: Cris Vogel M.D. Radiologist
== END | disposition home or self-care (01) ==
LOC: RADMAMWWP 14:19
PROVIDERS: ATTEND Family Medicine
DX: Z12.31 Encounter for screening mammogram for malignant neoplasm of breast (principal); Z78.0 Asymptomatic menopausal state; Z80.3 Family history of malignant neoplasm of breast
CPT/HCPCS: 77063; 77067

== ENCOUNTER → 2024-05-21 | Outpatient (CLI) | payer MEDICARE ==
--- NOTE | 2024-05-21 15:21 | MM ---
Reason for Exam: Screening (asymptomatic). Last mammogram was performed 1 year(s) and 1 month(s) ago. Patient History: Menarche at age 12. First Full-Term at age 26. Hysterectomy at age 39. Postmenopausal. Hormonal Contraceptives for 5 years from age 26 until age 31. 1956, Bilateral Reduction. 2000, Bilateral Reduction. Excisional Biopsy on the Right side. Excisional Biopsy on the Right side. Excisional Biopsy on the Left side. Excisional Biopsy on the Left side. Maternal aunt had breast cancer, age 60. Maternal aunt had breast cancer, age 50. Prior Study Comparison: 03/02/2021 Bilateral Diagnostic Mammogram, [facility]. 03/03/2022 Bilateral MG 3D screening mammo w/cad, [facility]. 04/13/2023 Bilateral MG 3D screening mammo w/cad, [facility]. Tissue Density: There are scattered areas of fibroglandular density. Findings: Analyzed By CAD. Some benign-appearing small scattered round calcifications bilaterally are redemonstrated. Benign-appearing vascular calcification right breast is again seen. There is no suspicious new group of microcalcifications or new suspicious mass in either breast. Overall Assessment: Benign, BI-RAD 2 Management: Screening Mammogram of both breasts in 1 year. . Patient should continue monthly self-breast exams. A clinical breast exam by your physician is recommended on an annual basis. This exam should not preclude additional follow-up of suspicious palpable abnormalities. Note on Emilia scores and lifetime risk: 1. A Emilia score greater than 3% is considered moderate risk. If this is the case, consider specialist referral to assess eligibility for a risk reducing agent. 2. If overall lifetime risk for the development of breast cancer is 20% or higher, the patient may qualify for future screening with alternating mammogram and breast MRI. [facility], , 05/21/2024 3:17 PM. Electronically signed and approved by: Ayden Payne M.D.
== END | disposition home or self-care (01) ==
LOC: RADMAMWWP 14:38
PROVIDERS: ATTEND Family Medicine
DX: Z12.31 Encounter for screening mammogram for malignant neoplasm of breast (principal); Z78.0 Asymptomatic menopausal state; Z80.3 Family history of malignant neoplasm of breast; R92.323 Mammographic fibroglandular density, bilateral breasts
CPT/HCPCS: 77063; 77067